=== PATIENT | female | born 1950 | race Caucasian/White ===

== ENCOUNTER → 2017-02-22 | Outpatient (CLI) | payer OTHER | END | disposition home or self-care (01) | LOC: LAB 12:28 | PROVIDERS: ATTEND Internal Medicine | DX: I10 Essential (primary) hypertension (principal) ==

== ENCOUNTER → 2017-02-23 | Outpatient (CLI) | payer OTHER ==
[2017-02-23 11:57] LABS: Basophils # (auto) 0 uL; Basophils % (auto) 0.2 % (0.0-2.0); Eosinophils # (auto) 0.2 uL; Eosinophils % (auto) 2.5 % (0.0-7.0); Hematocrit 46.7 % (36.0-46.0); Hemoglobin 15.5 g/dL (12.2-16.2); Lymphocytes # (auto) 1.8 uL; Lymphocytes % (auto) 22.9 % (10.0-50.0); Mean Corpuscular Hemoglobin 29.1 pg (28.0-32.0); Mean Corpuscular Hgb Conc. 33.3 g/dL (32.0-36.0); Mean Corpuscular Volume 87.3 fL (80.0-100.0); Mean Platelet Volume 7.6 fL (7.4-10.4); Monocytes # (auto) 0.5 uL; Monocytes % (auto) 5.8 % (0.0-12.0); Neutrophils # (auto) 5.5 uL; Neutrophils % (auto) 68.6 % (37.0-80.0); Platelet Count (auto) 245 10^3/uL (140-450); Red Cell Distribution Width 13.9 % (11.6-16.0)
[2017-02-23 12:09] LABS: Urine Bilirubin Negative (Negative); Urine Blood TRACE /uL (Negative); Urine Color Yellow (Yellow); Urine Glucose Normal (Normal); Urine Ketone Negative (Negative); Urine Nitrite Negative (Negative); Urine RBC <1 /hpf (0 - 4); Urine Squamous Epithelial Cell FEW /hpf (<5); Urine Urobilinogen Normal (Negative); Urine pH 5.5 (5.0-8.0)
[2017-02-23 12:54] LABS: Albumin 3.4 g/dL (3.4-5.0); BUN/Creatinine Ratio 19.6; Bilirubin, Total 0.2 mg/dL (0.2-1.0); Calcium 8.9 mg/dL (8.5-10.1); Potassium 3.5 mmol/L (3.5-5.1); Total Protein 7.4 g/dL (6.4-8.2)
== END | disposition home or self-care (01) ==
LOC: LAB 11:04
PROVIDERS: ATTEND Internal Medicine
DX: I10 Essential (primary) hypertension (principal)
CPT/HCPCS: 36415; 80053; 80061; 81001; 82043; 82306; 84439; 84443; 85025; 85652; 86431

== ENCOUNTER 2017-11-29 06:05 | Inpatient (IN) | payer OTHER ==
[2017-11-25 14:45] LABS: Urine Bacteria NONE SEEN /hpf (None Seen); Urine Blood Negative /uL (Negative); Urine Specific Gravity 1.018 (1.001-1.035); Urine WBC 1 /hpf (0 - 5)
[2017-11-25 14:46] LABS: Basophils # (auto) 0.1 uL; Basophils % (auto) 0.6 % (0.0-2.0); Eosinophils # (auto) 0.2 uL; Eosinophils % (auto) 1.8 % (0.0-7.0); Hematocrit 50.4 % (36.0-46.0); Lymphocytes # (auto) 2.5 uL; Lymphocytes % (auto) 24.3 % (10.0-50.0); Mean Corpuscular Hemoglobin 29.7 pg (28.0-32.0); Mean Corpuscular Hgb Conc. 33.7 g/dL (32.0-36.0); Mean Corpuscular Volume 88.1 fL (80.0-100.0); Monocytes # (auto) 0.7 uL; Neutrophils # (auto) 6.7 uL; Neutrophils % (auto) 66.3 % (37.0-80.0); Nucleated Red Blood Cells % 0.1 %; Platelet Count (auto) 293 10^3/uL (140-450); Red Blood Cells 5.72 10^6/uL (4.0-5.20); Red Cell Distribution Width 14.2 % (11.8-14.3); White Blood Cell 10.1 10^3/uL (4.4-10.8)
[2017-11-25 14:54] LABS: INR 0.95 (0.9-1.15); Prothrombin Time 10.4 sec (9.37-12.3)
[2017-11-25 15:08] LABS: BUN/Creatinine Ratio 32.2; Calcium 9.9 mg/dL (8.5-10.1); Potassium 3.8 mmol/L (3.5-5.1)
[2017-11-25 15:09] LABS: Bilirubin, Total 0.3 mg/dL (0.2-1.0); Total Protein 8.7 g/dL (6.4-8.2)
[~2017-11-29] VITALS: Ht 165.1 cm; Wt 74.9 kg
[~2017-11-29 06:05] MED LIST: ALBUAER3 IN; ASPI81TA27 PO; LISI-646 PO; OMEP20CA74 PO
[2017-11-29] MEDS ORDERED: cefTRIAXone SOD 1,000 MG VL ONE (06:54)
[2017-11-29] MEDS ORDERED: BUPIVACAINE 0.25% INJ 50ML VIAL ONE (06:57)
[2017-11-29] MEDS ORDERED: BUPIVACAINE W/ EPINEPH 0.25% INJ 50ML MDV ONE (06:57)
[2017-11-29] MEDS ORDERED: ROPIVACAINE 0.5% (5MG/ML) 20ML AMPULE IJ ONE (07:30)
[2017-11-29] MEDS ORDERED: LIDOCAINE W/ EPINEPHRINE 2% INJ 20ML VIAL ONE (07:31)
[2017-11-29] MEDS ORDERED: LIDOCAINE 1% HCL (LOCAL ANESTH.) INJ 20ML MDV ONE (07:31)
[2017-11-29] MEDS ORDERED: MIDAZOLAM HCL 1MG/1ML-2 ML VIAL ONE ×3 (07:35→09:28)
[2017-11-29] MEDS ORDERED: PROPOFOL 10 MG/ML 20 ML IV ONE ×3 (07:43→09:35)
[2017-11-29] MEDS ORDERED: MORPHINE SULF(PF) 0.5MG/ML 10ML VIAL ONE (07:45)
[2017-11-29] MEDS ORDERED: CLINDAMYCIN 600MG IV 50 ML IV ONE (07:49)
[2017-11-29] MEDS ORDERED: ePHEDrine SULFATE 50 MG/ML AMP ONE (07:55)
[2017-11-29] MEDS ORDERED: STERILE WATER 10 ML ONE ×2 (07:55→09:03)
[2017-11-29] MEDS ORDERED: METOCLOPRAMIDE HCL 5MG/ml INJ 2ml VIAL ONE (08:22)
[2017-11-29] MEDS ORDERED: diphenhdrAMINE HCL 50 MG/1 ML VL ONE (08:24)
[2017-11-29] MEDS ORDERED: NALOXONE HCL 0.4 MG/ML VIAL IV PRN ×2 (08:45)
[2017-11-29] MEDS ORDERED: KETOROLAC TROMETH 30 MG/ML 1ML VIAL IV PRN (08:45)
[2017-11-29] MEDS ORDERED: ePHEDrine SULFATE 50 MG/ML AMP IV PRN (08:45)
[2017-11-29] MEDS ORDERED: HYDROmorphone HCL 2 MG/ML VL IV PRN (08:45)
[2017-11-29] MEDS ORDERED: ONDANSETRON HCL 4 MG/2 ML VIAL IV ONE (08:45)
[2017-11-29] MEDS ORDERED: diphenhdrAMINE HCL 50 MG/1 ML VL IV PRN (08:45)
[2017-11-29] MEDS ORDERED: PHENYLEPHRINE HCL 10 MG/ML VL ONE (09:03)
[2017-11-29] MEDS ORDERED: LACTATED RINGER'S 1,000 ML IV SCH (10:41)
[2017-11-29] MEDS ORDERED: MORPHINE SULFATE 10 MG/ML INJ 1ML SDV IV PRN (10:45)
[2017-11-29] MEDS ORDERED: ACETAMINOPHEN 325 MG TAB PO PRN (10:45)
[2017-11-29] MEDS ORDERED: TEMAZEPAM 15 MG CAP PO PRN (10:45)
[2017-11-29] MEDS ORDERED: NITROGLYCERIN 0.4 MG SL TAB SL PRN (10:45)
[2017-11-29 12:08] LABS: Hematocrit 37.4 % (36.0-46.0); Hemoglobin 12.5 g/dL (12.2-16.2)
[2017-11-29 13:06] VITALS: BP 108/53
[2017-11-29] MEDS: HYDROcodone-ACET 10/325MG TAB PO PRN ×2 (13:27→18:17)
[2017-11-29] MEDS: ONDANSETRON HCL 4 MG/2 ML VIAL IV PRN ×3 (13:33→22:31)
[2017-11-29] MEDS: SODIUM CHLOR 0.9% PF (SALINE LOCK) 10ML VIAL IV SCH ×2 (14:00→21:22)
[2017-11-29] MEDS: CLINDAMYCIN 600MG IV 50 ML IV SCH ×2 (16:14→23:53)
[2017-11-29 16:46] VITALS: BP 104/61
[2017-11-29] MEDS: oxyCODONE ER 10 MG TAB PO SCH (21:22)
[2017-11-29] MEDS: DOCUSATE SOD 100 MG CAP PO SCH (21:22)
[2017-11-29 21:42] VITALS: BP 118/81
[2017-11-29] MEDS: HYDROmorphone HCL 2 MG/ML VL IV PRN (22:30)
[2017-11-30] MEDS ORDERED: HYDROmorphone HCL 2 MG/ML VL ONE (03:53)
[2017-11-30] MEDS: HYDROmorphone HCL 2 MG/ML VL IV PRN (04:05)
[2017-11-30] MEDS: ONDANSETRON HCL 4 MG/2 ML VIAL IV PRN ×2 (04:05→10:40)
[2017-11-30 05:02] VITALS: BP 109/45
[2017-11-30] MEDS: SODIUM CHLOR 0.9% PF (SALINE LOCK) 10ML VIAL IV SCH ×3 (06:24→21:29)
[2017-11-30 09:00] VITALS: BP 117/51
[2017-11-30 09:33] LABS: Hematocrit 35.7 % (36.0-46.0); Hemoglobin 12.2 g/dL (12.2-16.2)
[2017-11-30] MEDS: oxyCODONE ER 10 MG TAB PO SCH ×2 (10:00→21:38)
[2017-11-30] MEDS: CLINDAMYCIN 600MG IV 50 ML IV SCH ×3 (10:19→23:49)
[2017-11-30] MEDS: ENOXAPARIN SOD 40 MG/0.4 ML SYRINGE SC SCH (10:41)
[2017-11-30] MEDS: DOCUSATE SOD 100 MG CAP PO SCH ×2 (10:41→21:29)
[2017-11-30] MEDS ORDERED: MORPHINE SULFATE 10 MG/ML INJ 1ML SDV IV PRN (10:45)
[2017-11-30] MEDS ORDERED: MORPHINE SULFATE 10 MG/ML INJ 1ML SDV IV ONE (10:45)
[2017-11-30] MEDS ORDERED: PANTOPRAZOLE 40 MG TAB PO ONE (11:00)
[2017-11-30 13:00] VITALS: BP 127/54
[2017-11-30] MEDS: KETOROLAC TROMETH 30 MG/ML 1ML VIAL IV PRN ×2 (14:41→21:30)
[2017-11-30 17:00] VITALS: BP 131/59
[2017-11-30] MEDS: traMADol HCL 50 MG TAB PO PRN (19:53)
[2017-11-30 22:52] VITALS: BP 124/55
[2017-12-01 04:57] VITALS: BP 111/47
[2017-12-01] MEDS: SODIUM CHLOR 0.9% PF (SALINE LOCK) 10ML VIAL IV SCH ×3 (06:00→21:36)
[2017-12-01] MEDS: KETOROLAC TROMETH 30 MG/ML 1ML VIAL IV PRN ×3 (06:33→18:24)
[2017-12-01 08:00] VITALS: BP 115/69
[2017-12-01] MEDS: HYDROcodone-ACET 10/325MG TAB PO PRN ×3 (08:00→15:54)
[2017-12-01] MEDS: CLINDAMYCIN 600MG IV 50 ML IV SCH (08:00)
[2017-12-01 10:00] LABS: Hematocrit 34.7 % (36.0-46.0)
[2017-12-01] MEDS: oxyCODONE ER 10 MG TAB PO SCH ×2 (10:00→21:37)
[2017-12-01] MEDS: PANTOPRAZOLE 40 MG TAB PO SCH (10:38)
[2017-12-01] MEDS: DOCUSATE SOD 100 MG CAP PO SCH ×2 (10:38→21:41)
[2017-12-01] MEDS: ENOXAPARIN SOD 40 MG/0.4 ML SYRINGE SC SCH (10:39)
[2017-12-01 13:00] VITALS: BP 129/90
[2017-12-01] MEDS: traMADol HCL 50 MG TAB PO PRN (16:40)
[2017-12-01 16:55] VITALS: BP 136/65
[2017-12-01] MEDS: LISINOPRIL 20 MG TAB PO SCH ×2 (21:42→21:46)
[2017-12-01 22:00] VITALS: BP 129/55
[2017-12-02] MEDS: KETOROLAC TROMETH 30 MG/ML 1ML VIAL IV PRN ×4 (03:52→22:35)
[2017-12-02 05:49] VITALS: BP 131/52
[2017-12-02] MEDS: SODIUM CHLOR 0.9% PF (SALINE LOCK) 10ML VIAL IV SCH ×3 (06:03→22:35)
[2017-12-02 08:07] LABS: Hematocrit 32.6 % (36.0-46.0); Hemoglobin 11.4 g/dL (12.2-16.2)
[2017-12-02] MEDS: traMADol HCL 50 MG TAB PO PRN (08:40)
[2017-12-02] MEDS: HYDROcodone-ACET 10/325MG TAB PO PRN ×3 (08:50→18:47)
[2017-12-02 09:31] VITALS: BP 116/47
[2017-12-02] MEDS: DOCUSATE SOD 100 MG CAP PO SCH ×2 (09:40→22:00)
[2017-12-02] MEDS: ENOXAPARIN SOD 40 MG/0.4 ML SYRINGE SC SCH (09:40)
[2017-12-02] MEDS: PANTOPRAZOLE 40 MG TAB PO SCH (09:40)
[2017-12-02] MEDS: oxyCODONE ER 10 MG TAB PO SCH ×2 (09:41→22:00)
[2017-12-02] MEDS ORDERED: ALBUAER3 IN (12:23)
[2017-12-02] MEDS ORDERED: ROSU20TA14 PO (12:25)
[2017-12-02 12:39] VITALS: BP 129/55
[2017-12-02 13:18] VITALS: BP 105/32
[2017-12-02 17:09] VITALS: BP 107/38
[2017-12-02] MEDS: LISINOPRIL 20 MG TAB PO SCH (22:00)
[2017-12-02 22:56] VITALS: BP 110/47
[2017-12-03 04:59] VITALS: BP 131/56
[2017-12-03] MEDS: SODIUM CHLOR 0.9% PF (SALINE LOCK) 10ML VIAL IV SCH (05:45)
[2017-12-03 08:20] LABS: Hematocrit 35.6 % (36.0-46.0); Hemoglobin 12.1 g/dL (12.2-16.2)
[2017-12-03] MEDS: HYDROcodone-ACET 10/325MG TAB PO PRN ×2 (08:23→13:01)
[2017-12-03 09:00] VITALS: BP 132/58
[2017-12-03] MEDS: DOCUSATE SOD 100 MG CAP PO SCH (09:26)
[2017-12-03] MEDS: ENOXAPARIN SOD 40 MG/0.4 ML SYRINGE SC SCH (09:27)
[2017-12-03] MEDS: PANTOPRAZOLE 40 MG TAB PO SCH (09:27)
[2017-12-03] MEDS: oxyCODONE ER 10 MG TAB PO SCH (09:27)
[2017-12-03 13:00] VITALS: BP 125/53
== END 2017-12-03 14:00 | disposition home health service (06) | DRG 470 ==
LOC: SUR 06:05 → TELE-CENTR 06:06
PROVIDERS: ADMIT Orthopaedic Surgery; ATTEND Internal Medicine
PROC: 0MBM0ZZ Excision of Left Hip Bursa and Ligament, Open Approach (ICD-10-PCS; 2017-11-29)
PROC: 0QB30ZZ Excision of Left Pelvic Bone, Open Approach (ICD-10-PCS; 2017-11-29)
PROC: 0SRB04A Replacement of Left Hip Joint with Ceramic on Polyethylene Synthetic Substitute, Uncemented, Open Approach (ICD-10-PCS; principal; 2017-11-29 07:56)
DX: M16.12 Unilateral primary osteoarthritis, left hip (principal); D16.8 Benign neoplasm of pelvic bones, sacrum and coccyx; F41.9 Anxiety disorder, unspecified; M70.62 Trochanteric bursitis, left hip; I10 Essential (primary) hypertension; K21.9 Gastro-esophageal reflux disease without esophagitis; Z90.49 Acquired absence of other specified parts of digestive tract; Y93.89 Activity, other specified; Z88.0 Allergy status to penicillin; Z72.0 Tobacco use
CPT/HCPCS: 36415; 73501; 80053; 81001; 85014; 85018; 85025; 85610; 85730; 86850; 86900; 86901; 97116; 97163; 97530; J0696; J1885; J2001; J2250; J2405; J2704; J3490

== ENCOUNTER 2019-06-11 09:09 | Day surgery (SDC) | payer OTHER ==
[2019-06-07 09:49] LABS: Basophils # (auto) 0.1 uL; Basophils % (auto) 0.7 % (0.0-2.0); Eosinophils # (auto) 0.2 uL; Eosinophils % (auto) 2.4 % (0.0-7.0); Hematocrit 49.6 % (36.0-46.0); Lymphocytes # (auto) 3.1 uL; Lymphocytes % (auto) 31.6 % (10.0-50.0); Mean Corpuscular Hemoglobin 29.9 pg (28.0-32.0); Mean Corpuscular Hgb Conc. 34.2 g/dL (32.0-36.0); Mean Corpuscular Volume 87.5 fL (80.0-100.0); Monocytes # (auto) 0.7 uL; Monocytes % (auto) 6.7 % (0.0-12.0); Neutrophils # (auto) 5.7 uL; Neutrophils % (auto) 58.6 % (37.0-80.0); Nucleated Red Blood Cells % 0.1 %; Platelet Count (auto) 263 10^3/uL (140-450); Red Blood Cells 5.67 10^6/uL (4.0-5.20); Red Cell Distribution Width 14.1 % (11.8-14.3); White Blood Cell 9.8 10^3/uL (4.4-10.8)
[2019-06-07 09:54] LABS: Urine Amorphous Crystal FEW /hpf (None Seen); Urine Bacteria NONE SEEN /hpf (None Seen); Urine Blood Negative /uL (Negative); Urine Specific Gravity 1.017 (1.001-1.035); Urine WBC <1 /hpf (0 - 5)
[2019-06-07 10:22] LABS: Calcium 9.8 mg/dL (8.5-10.1); Potassium 4.2 mmol/L (3.5-5.1)
[2019-06-07 10:26] LABS: Bilirubin, Total 0.3 mg/dL (0.2-1.0); Total Protein 8.6 g/dL (6.4-8.2)
[2019-06-07 10:37] LABS: INR < 0.93 (0.9-1.15)
[~2019-06-11] VITALS: Ht 165.1 cm; Wt 72.1 kg
[~2019-06-11 09:09] MED LIST changes: -ALBUAER3 IN; +ASPI-404 PO; -ASPI81TA27 PO
[2019-06-11] MEDS ORDERED: LIDOCAINE 1% (LOCAL ANESTH.) PF 5ml SDV ONE (10:20)
[2019-06-11] MEDS ORDERED: MIDAZOLAM HCL 1MG/1ML-2 ML VIAL ONE ×2 (10:22→10:33)
[2019-06-11] MEDS ORDERED: GLYCOPYRROLATE 0.2 MG/ML 1ML VIAL ONE (10:30)
[2019-06-11] MEDS ORDERED: diphenhdrAMINE HCL 50 MG/1 ML VL ONE (10:30)
[2019-06-11] MEDS ORDERED: METOCLOPRAMIDE HCL 5MG/ml INJ 2ml VIAL ONE (10:30)
[2019-06-11] MEDS ORDERED: fentaNYL CITRATE 100 MCG/2 ML VL ONE (10:44)
[2019-06-11] MEDS ORDERED: HYDROmorphone HCL 2 MG/ML VL IV PRN (11:00)
[2019-06-11] MEDS ORDERED: ONDANSETRON HCL 4 MG/2 ML VIAL IV ONE (11:00)
[2019-06-11] MEDS ORDERED: NALOXONE HCL 0.4 MG/ML VIAL IV PRN (11:00)
[2019-06-11 11:41] VITALS: BP 133/65
== END 2019-06-11 11:46 | disposition home or self-care (01) ==
LOC: GI 09:09
PROVIDERS: ATTEND Internal Medicine Gastroenterology
DX: Z12.11 Encounter for screening for malignant neoplasm of colon (principal); D12.3 Benign neoplasm of transverse colon; K29.50 Unspecified chronic gastritis without bleeding; K21.0 Gastro-esophageal reflux disease with esophagitis; K57.30 Diverticulosis of large intestine without perforation or abscess without bleeding; K64.8 Other hemorrhoids; E78.5 Hyperlipidemia, unspecified; I70.0 Atherosclerosis of aorta; I10 Essential (primary) hypertension; G43.909 Migraine, unspecified, not intractable, without status migrainosus; F17.210 Nicotine dependence, cigarettes, uncomplicated; M19.90 Unspecified osteoarthritis, unspecified site; Z88.0 Allergy status to penicillin; Z79.82 Long term (current) use of aspirin; Z79.899 Other long term (current) drug therapy; Z98.890 Other specified postprocedural states; Z98.49 Cataract extraction status, unspecified eye; Z86.010 Personal history of colon polyps; Z90.49 Acquired absence of other specified parts of digestive tract; Z96.652 Presence of left artificial knee joint
CPT/HCPCS: 36415; 43239; 45380; 80053; 81001; 85025; 85610; 85730; 88305; 88342; J1200; J2250; J2765; J3010; J7030